=== PATIENT | female | born 2000 | race Hispanic/Latino ===

== ENCOUNTER 2025-10-08 15:46 | Inpatient (IN) | payer OTHER ==
[2025-10-08] MEDS ORDERED: Lidocaine 2% MPF 10 ML AMP (For Epidural Use) ONE (17:00)
[2025-10-08] MEDS ORDERED: Bupivacaine/Epinephrine 0.25% 30 ML VIAL ONE (17:00)
[2025-10-08 17:07] VITALS: BMI 39.9
[2025-10-08 17:31] LABS: ALT (SGPT) 13 U/L (Less than 34); AST (SGOT) 26 U/L (11-34); Albumin 2.2 g/dL (3.1-4.5); Alkaline Phosphatase 137 U/L (40-110); Anion Gap 11 mmol/L (10-20); BUN (Urea Nitrogen) 14 mg/dL (7.0-18.7); Bilirubin, Total 0.5 mg/dL (0.3-1.2); Calc. Creatinine Clearance 150 mL/min (70-130); Calcium 8.3 mg/dL (7.8-10.44); Carbon Dioxide 18 mmol/L (22-29); Chloride 110 mmol/L (98-107); Globulin 3.5 g/dL (2.4-3.5); Glucose 104 mg/dL (70-105); Potassium 4.1 mmol/L (3.5-5.1); Sodium 135 mmol/L (136-145)
[2025-10-08] MEDS ORDERED: Tranexamic Acid 1,000 MG/10 ML VIAL IVP PRN (17:31)
[2025-10-08] MEDS ORDERED: hydrALAZINE 20 MG/ML VIAL SLOW IVP PRN (17:31)
[2025-10-08] MEDS ORDERED: Carboprost 250 MCG/ML AMP IM PRN (17:31)
[2025-10-08] MEDS ORDERED: Lidocaine 1% (PF) 30 ML VIAL SC PRN (17:31)
[2025-10-08] MEDS ORDERED: Diphenoxylate HCl/Atropine Tablet PO PRN ×2 (17:31)
[2025-10-08] MEDS ORDERED: Ibuprofen 800 MG TAB PO PRN (17:31)
[2025-10-08 17:37] LABS: #Basophils Less than 0.03 10x3/uL (0.0-0.2); #Eosinophils Less than 0.03 10x3/uL (0.0-0.5); #Monocytes 0.54 10x3/uL (0.0-1.1); #Neutrophils 6.51 10x3/uL (1.5-8.4); %Basophils 0.2 % (0.0-2.0); %Eosinophils 0.1 % (0.0-6.0); %Lymphocytes 19.3 % (18.0-47.0); %Monocytes 6.1 % (0.0-10.0); %Neutrophils 73.8 % (40.0-75.0); Hematocrit 30.0 % (34.9-44.5); Hemoglobin 10.3 g/dL (12.0-15.5); Mean Corpuscular Hemoglobin 30.3 pg (27.0-33.0); Mean Corpuscular Volume 88.2 fL (81.6-98.3); Platelet Count 141 10x3/uL (150-450); Red Blood Cell (RBC) Count 3.40 10x6/uL (3.90-5.03); White Blood Cell (WBC) Count 8.82 10x3/uL (3.5-10.5)
[2025-10-08] MEDS ORDERED: Oxytocin 30 units/NS 500 ML 500 ML IV SCH (17:45)
[2025-10-08 18:19] LABS: Protein, Urine Random Quant 597.0 mg/dL (1-14)
[2025-10-08 20:24] LABS: Syphilis Antibody Index 0.05 S/CO (<1.00 Non-Reactive)
[2025-10-08 20:27] LABS: Hep B Surf Ag - L&D Non-Reactive S/CO (NonReactive)
[2025-10-09] MEDS: hydrALAZINE 20 MG/ML VIAL SLOW IVP PRN ×2 (08:07→08:49)
[2025-10-09] MEDS ORDERED: hydrALAZINE 20 MG/ML VIAL SLOW IVP PRN (08:07)
[2025-10-09] MEDS ORDERED: Calcium Gluc 4.6 MEQ/10 ML (100 MG/ML) SLOW IVP PRN (08:07)
[2025-10-09] MEDS: Magnesium Sulfate 20 gm/500 ml 20 GM/500 ML BAG IVPB SCH (08:18)
[2025-10-09] MEDS: Acetaminophen 500 MG TAB PO PRN (09:02)
[2025-10-09] MEDS: Acetaminophen 500 MG TAB PO SCH (09:13)
[2025-10-09] MEDS: Oxytocin 30 units/NS 500 ML 500 ML IV SCH (11:32)
[2025-10-09] MEDS ORDERED: Acetaminophen 325 MG TAB PO PRN (22:38)
[2025-10-09] MEDS ORDERED: Ondansetron PF 4 MG/2 ML Vial IVP PRN (22:38)
[2025-10-09] MEDS ORDERED: diphenhydrAMINE 50 MG/ML VIAL IVP PRN (22:38)
[2025-10-09] MEDS ORDERED: Communication Order-Pharmacy FS SCH (22:45)
[2025-10-10] MEDS: Magnesium Sulfate 20 gm/500 ml 20 GM/500 ML BAG ONE (03:10)
[2025-10-10] MEDS: fentaNYL 2 mcg/Ropivacaine 0.2% Epidural 100 ML CADD EPIDURAL SCH (07:21)
[2025-10-10] MEDS: Ondansetron PF 4 MG/2 ML Vial IVP PRN (10:40)
[2025-10-10] MEDS ORDERED: Famotidine/PF 20 mg/2ml Vial SLOW IVP PRN (13:08)
[2025-10-10] MEDS ORDERED: Bicitra 30 ML UDCUP PO PRN (13:08)
[2025-10-10] MEDS ORDERED: Azithromycin 500 MG in Sodium Chloride 0.9% 250 ML 250 ML IVPB SCH (13:15)
[2025-10-10] MEDS ORDERED: Meperidine HCl/PF 25 MG (1 mL) VIAL SLOW IVP PRN (14:39)
[2025-10-10] MEDS ORDERED: Ondansetron PF 4 MG/2 ML Vial IVP PRN ×2 (14:39)
[2025-10-10] MEDS ORDERED: Communication Order-Pharmacy FS SCH (14:45)
[2025-10-10] MEDS ORDERED: Ketorolac Tromethamine 30 MG (1 mL) VIAL IVP SCH (14:45)
[2025-10-10] MEDS ORDERED: Lanolin Ointment 7 GM TUBE TOP PRN (15:05)
[2025-10-10] MEDS ORDERED: hydrALAZINE 20 MG/ML VIAL SLOW IVP PRN (15:05)
[2025-10-10] MEDS ORDERED: Acetaminophen 325 MG TAB PO PRN (15:05)
[2025-10-10 16:52] LABS: Hematocrit 27.0 % (34.9-44.5); Hemoglobin 9.4 g/dL (12.0-15.5); Mean Corpuscular Hemoglobin 30.5 pg (27.0-33.0); Mean Corpuscular Volume 87.7 fL (81.6-98.3); Platelet Count 129 10x3/uL (150-450); Red Blood Cell (RBC) Count 3.08 10x6/uL (3.90-5.03); White Blood Cell (WBC) Count 20.84 10x3/uL (3.5-10.5)
[2025-10-10 17:04] LABS: ALT (SGPT) 14 U/L (Less than 34); AST (SGOT) 48 U/L (11-34); Albumin 1.8 g/dL (3.1-4.5); Alkaline Phosphatase 118 U/L (40-110); Anion Gap 14 mmol/L (10-20); BUN (Urea Nitrogen) 11 mg/dL (7.0-18.7); Bilirubin, Total 0.4 mg/dL (0.3-1.2); Calc. Creatinine Clearance 134 mL/min (70-130); Calcium 7.4 mg/dL (7.8-10.44); Carbon Dioxide 15 mmol/L (22-29); Chloride 105 mmol/L (98-107); Globulin 3.1 g/dL (2.4-3.5); Glucose 153 mg/dL (70-105); Potassium 4.4 mmol/L (3.5-5.1); Sodium 130 mmol/L (136-145)
[2025-10-10 17:09] LABS: Magnesium 7.2 mg/dL (1.6-2.6)
[2025-10-10] MEDS: Furosemide 40 MG (4 mL) VIAL SLOW IVP SCH (17:44)
[2025-10-10 20:05] LABS: D-Dimer Test 3.26 mcg/mL (0.19-0.50); Fibrinogen 530.0 mg/dL (220-504); INR-International Normal Ratio 0.9; PTT 30.5 sec (22.0-33.0); Prothrombin Time 9.6 sec (9.5-12.1)
[2025-10-10 20:14] LABS: Magnesium 6.0 mg/dL (1.6-2.6)
[2025-10-10 20:17] LABS: Platelet Count 146.0 10x3/uL (150-450)
[2025-10-10] MEDS: diphenhydrAMINE 50 MG/ML VIAL IVP PRN (20:40)
[2025-10-11] MEDS: Ketorolac Tromethamine 30 MG (1 mL) VIAL IVP PRN (01:38)
[2025-10-11 02:25] LABS: Hematocrit 24.4 % (34.9-44.5); Hemoglobin 8.5 g/dL (12.0-15.5); Mean Corpuscular Hemoglobin 30.8 pg (27.0-33.0); Mean Corpuscular Volume 88.4 fL (81.6-98.3); Platelet Count 144 10x3/uL (150-450); Red Blood Cell (RBC) Count 2.76 10x6/uL (3.90-5.03); White Blood Cell (WBC) Count 28.53 10x3/uL (3.5-10.5)
[2025-10-11 02:48] LABS: Magnesium 6.2 mg/dL (1.6-2.6)
[2025-10-11 05:55] LABS: Platelet Count 148 10x3/uL (150-450)
[2025-10-11 05:56] LABS: Hematocrit 23.1 % (34.9-44.5); Hemoglobin 7.8 g/dL (12.0-15.5); Mean Corpuscular Hemoglobin 30.5 pg (27.0-33.0); Mean Corpuscular Volume 90.2 fL (81.6-98.3); Red Blood Cell (RBC) Count 2.56 10x6/uL (3.90-5.03); White Blood Cell (WBC) Count 26.45 10x3/uL (3.5-10.5)
[2025-10-11 05:57] LABS: MDiff Complete? YES; Platelet Adequacy Comment Appears Decreased; RBC Morphology Within Normal Limits
[2025-10-11 06:01] LABS: ALT (SGPT) 12 U/L (Less than 34); AST (SGOT) 31 U/L (11-34); Albumin 1.5 g/dL (3.1-4.5); Alkaline Phosphatase 93 U/L (40-110); Anion Gap 12 mmol/L (10-20); BUN (Urea Nitrogen) 14 mg/dL (7.0-18.7); Bilirubin, Total 0.3 mg/dL (0.3-1.2); Calc. Creatinine Clearance 103 mL/min (70-130); Calcium 7.3 mg/dL (7.8-10.44); Carbon Dioxide 19 mmol/L (22-29); Chloride 104 mmol/L (98-107); Globulin 2.9 g/dL (2.4-3.5); Glucose 149 mg/dL (70-105); Potassium 4.6 mmol/L (3.5-5.1); Sodium 130 mmol/L (136-145)
[2025-10-11 08:20] LABS: Magnesium 6.9 mg/dL (1.6-2.6)
[2025-10-11] MEDS: Furosemide 40 MG (4 mL) VIAL SLOW IVP SCH (14:48)
[2025-10-11] MEDS: Ferrous Sulfate 325 MG TAB PO SCH (14:52)
[2025-10-11] MEDS: HYDROcodone/Acetaminophen 5/325 mg Tablet PO PRN ×2 (14:59→20:28)
[2025-10-11] MEDS: fentaNYL/Ropivacaine Epidural 100 ML ONE ×2 (16:37→16:40)
[2025-10-11] MEDS: Dexamethasone 10 MG/ML VIAL ONE (16:38)
[2025-10-11] MEDS: Azithromycin 500 MG VIAL ONE (16:38)
[2025-10-11] MEDS: CEFAZOLIN 2 GM VIAL ONE (16:38)
[2025-10-11] MEDS: Oxytocin 10 UNITS/ML VIAL ONE (16:38)
[2025-10-11] MEDS: Ibuprofen 800 MG TAB PO SCH (22:00)
[2025-10-12] MEDS: Simethicone Chewable 80 MG TAB PO PRN (05:52)
[2025-10-12 05:59] LABS: ALT (SGPT) 15 U/L (Less than 34); AST (SGOT) 33 U/L (11-34); Albumin 1.6 g/dL (3.1-4.5); Alkaline Phosphatase 90 U/L (40-110); Anion Gap 11 mmol/L (10-20); BUN (Urea Nitrogen) 19 mg/dL (7.0-18.7); Bilirubin, Total 0.3 mg/dL (0.3-1.2); Calc. Creatinine Clearance 141 mL/min (70-130); Calcium 7.6 mg/dL (7.8-10.44); Carbon Dioxide 22 mmol/L (22-29); Chloride 109 mmol/L (98-107); Globulin 3.3 g/dL (2.4-3.5); Glucose 83 mg/dL (70-105); Potassium 4.6 mmol/L (3.5-5.1); Sodium 137 mmol/L (136-145)
[2025-10-12] MEDS: NIFEdipine XL 30 MG ER.TAB PO SCH (12:56)
[2025-10-13] MEDS: Ibuprofen 800 MG TAB PO SCH (00:04)
[2025-10-13 07:26] LABS: #Basophils Less than 0.03 10x3/uL (0.0-0.2); #Eosinophils 0.09 10x3/uL (0.0-0.5); #Monocytes 0.65 10x3/uL (0.0-1.1); #Neutrophils 11.97 10x3/uL (1.5-8.4); %Basophils 0.1 % (0.0-2.0); %Eosinophils 0.6 % (0.0-6.0); %Lymphocytes 15.8 % (18.0-47.0); %Monocytes 4.3 % (0.0-10.0); %Neutrophils 78.4 % (40.0-75.0); Hematocrit 23.8 % (34.9-44.5); Hemoglobin 8.0 g/dL (12.0-15.5); Mean Corpuscular Hemoglobin 30.7 pg (27.0-33.0); Mean Corpuscular Volume 91.2 fL (81.6-98.3); Platelet Count 211 10x3/uL (150-450); Red Blood Cell (RBC) Count 2.61 10x6/uL (3.90-5.03); White Blood Cell (WBC) Count 15.25 10x3/uL (3.5-10.5)
[2025-10-13 07:44] LABS: ALT (SGPT) 53 U/L (Less than 34); AST (SGOT) 101 U/L (11-34); Albumin 1.9 g/dL (3.1-4.5); Alkaline Phosphatase 113 U/L (40-110); Anion Gap 7 mmol/L (10-20); BUN (Urea Nitrogen) 12 mg/dL (7.0-18.7); Bilirubin, Total 0.3 mg/dL (0.3-1.2); Calc. Creatinine Clearance 195 mL/min (70-130); Calcium 8.3 mg/dL (7.8-10.44); Carbon Dioxide 27 mmol/L (22-29); Chloride 110 mmol/L (98-107); Globulin 4.1 g/dL (2.4-3.5); Glucose 98 mg/dL (70-105); Potassium 4.3 mmol/L (3.5-5.1); Sodium 140 mmol/L (136-145)
[2025-10-13] MEDS: NIFEdipine XL 30 MG ER.TAB PO SCH (09:37)
[2025-10-13] MEDS: Furosemide 20 MG TAB PO SCH (09:41)
[2025-10-13] MEDS: Acetaminophen 500 MG TAB PO SCH (13:10)
[2025-10-13] MEDS: Iron Sucrose Complex 500 MG in Sodium Chloride 0.9% 250 ML 250 ML IVPB SCH (13:36)
[2025-10-14 03:17] LABS: #Basophils Less than 0.03 10x3/uL (0.0-0.2); #Eosinophils 0.11 10x3/uL (0.0-0.5); #Monocytes 0.78 10x3/uL (0.0-1.1); #Neutrophils 10.51 10x3/uL (1.5-8.4); %Basophils 0.1 % (0.0-2.0); %Eosinophils 0.8 % (0.0-6.0); %Lymphocytes 14.7 % (18.0-47.0); %Monocytes 5.7 % (0.0-10.0); %Neutrophils 77.3 % (40.0-75.0); Hematocrit 19.5 % (34.9-44.5); Hemoglobin 6.5 g/dL (12.0-15.5); Mean Corpuscular Hemoglobin 30.0 pg (27.0-33.0); Mean Corpuscular Volume 89.9 fL (81.6-98.3); Platelet Count 179 10x3/uL (150-450); Red Blood Cell (RBC) Count 2.17 10x6/uL (3.90-5.03); White Blood Cell (WBC) Count 13.60 10x3/uL (3.5-10.5)
[2025-10-14 03:40] LABS: ALT (SGPT) 49 U/L (Less than 34); AST (SGOT) 62 U/L (11-34); Albumin 1.7 g/dL (3.1-4.5); Alkaline Phosphatase 102 U/L (40-110); Anion Gap 11 mmol/L (10-20); BUN (Urea Nitrogen) 10 mg/dL (7.0-18.7); Bilirubin, Total 0.2 mg/dL (0.3-1.2); Calc. Creatinine Clearance 204 mL/min (70-130); Calcium 8.1 mg/dL (7.8-10.44); Carbon Dioxide 24 mmol/L (22-29); Chloride 106 mmol/L (98-107); Globulin 3.4 g/dL (2.4-3.5); Glucose 77 mg/dL (70-105); Potassium 3.9 mmol/L (3.5-5.1); Sodium 137 mmol/L (136-145)
[2025-10-14] MEDS ORDERED: HYDROcodone/Acetaminophen 5/325 mg Tablet PO PRN (08:46)
[2025-10-14] MEDS: NIFEdipine XL 60 MG ER.TAB PO SCH (09:37)
[2025-10-14] MEDS: Furosemide 20 MG TAB PO SCH (09:38)
[2025-10-14 09:47] LABS: Hematocrit 23.4 % (34.9-44.5); Hemoglobin 7.7 g/dL (12.0-15.5)
[2025-10-14 12:16] VITALS: BP 121/65; TEMP 98.6
== END 2025-10-14 12:25 | disposition home or self-care (01) | DRG 787 ==
LOC: CSHLD/OP 15:46 → CSHLD 18:19 → CSHPP 10-11 15:36
PROVIDERS: ADMIT Family Medicine; ATTEND Family Medicine
PROC: 0U797ZZ Dilation of Uterus, Via Natural or Artificial Opening (ICD-10-PCS; 2025-10-09)
PROC: 3E0R3BZ Introduction of Anesthetic Agent into Spinal Canal, Percutaneous Approach (ICD-10-PCS; 2025-10-09)
PROC: 4A1HXCZ Monitoring of Products of Conception, Cardiac Rate, External Approach (ICD-10-PCS; 2025-10-09)
PROC: 10D00Z1 Extraction of Products of Conception, Low, Open Approach (ICD-10-PCS; principal; 2025-10-10)
PROC: 10H07YZ Insertion of Other Device into Products of Conception, Via Natural or Artificial Opening (ICD-10-PCS; 2025-10-10)
DX: O13.4 Gestational [pregnancy-induced] hypertension without significant proteinuria, complicating childbirth (principal); N17.9 Acute kidney failure, unspecified; O14.14 Severe pre-eclampsia complicating childbirth; O32.2XX0 Maternal care for transverse and oblique lie, not applicable or unspecified; O72.1 Other immediate postpartum hemorrhage; Z3A.37 37 weeks gestation of pregnancy; O90.89 Other complications of the puerperium, not elsewhere classified; G57.82 Other specified mononeuropathies of left lower limb; R74.01 Elevation of levels of liver transaminase levels; Z37.0 Single live birth
CPT/HCPCS: 36415; 36416; 51702; 59200; 80053; 82570; 83735; 84156; 85025; 85027; 85049; 85300; 85362; 85384; 85610; 85730; 86780; 86850; 86900; 86901; 87340; 88307; 99285; J0360; J1100; J1200; J1756; J1885; J1940; J2274; J2405; J2590; J3010; J3475; J3490; J7050; J7120

== ENCOUNTER 2025-10-19 09:56 | Inpatient (IN) | payer OTHER ==
[2025-10-19] MEDS ORDERED: Acetaminophen 325 MG TAB PO PRN (11:58)
[2025-10-19] MEDS ORDERED: Lanolin Ointment 7 GM TUBE TOP PRN (12:09)
[2025-10-19 13:39] VITALS: BMI 31.1
[2025-10-19] MEDS: Ibuprofen 800 MG TAB PO SCH (17:36)
[2025-10-19] MEDS: Clindamycin/D5W 900 MG in Premix 1 BAG IVPB SCH (20:52)
[2025-10-20] MEDS ORDERED: Aluminum & Magnesium Hydroxide 60 ML, Lidocaine 2% Viscous Solution 30 ML, diphenhydrAM... SSW PRN (03:26)
[2025-10-20 03:53] LABS: #Basophils 0.03 10x3/uL (0.0-0.2); #Eosinophils 0.12 10x3/uL (0.0-0.5); #Monocytes 0.92 10x3/uL (0.0-1.1); #Neutrophils 15.45 10x3/uL (1.5-8.4); %Basophils 0.2 % (0.0-2.0); %Eosinophils 0.7 % (0.0-6.0); %Lymphocytes 7.0 % (18.0-47.0); %Monocytes 5.1 % (0.0-10.0); %Neutrophils 85.6 % (40.0-75.0); Hematocrit 29.3 % (34.9-44.5); Hemoglobin 9.7 g/dL (12.0-15.5); Mean Corpuscular Hemoglobin 30.1 pg (27.0-33.0); Mean Corpuscular Volume 91.0 fL (81.6-98.3); Platelet Count 315 10x3/uL (150-450); Red Blood Cell (RBC) Count 3.22 10x6/uL (3.90-5.03); White Blood Cell (WBC) Count 18.05 10x3/uL (3.5-10.5)
[2025-10-20 04:03] LABS: ALT (SGPT) 12 U/L (Less than 34); AST (SGOT) 16 U/L (11-34); Albumin 2.1 g/dL (3.1-4.5); Alkaline Phosphatase 78 U/L (40-110); Anion Gap 12 mmol/L (10-20); BUN (Urea Nitrogen) 8 mg/dL (7.0-18.7); Bilirubin, Total 0.3 mg/dL (0.3-1.2); Calc. Creatinine Clearance 165 mL/min (70-130); Calcium 8.2 mg/dL (7.8-10.44); Carbon Dioxide 22 mmol/L (22-29); Chloride 104 mmol/L (98-107); Globulin 4.0 g/dL (2.4-3.5); Glucose 100 mg/dL (70-105); Potassium 3.4 mmol/L (3.5-5.1); Sodium 135 mmol/L (136-145)
[2025-10-20] MEDS: Aluminum & Magnesium Hydroxide 60 ML, Lidocaine 2% Viscous Solution 30 ML, diphenhydrAM... SSW PRN (04:08)
[2025-10-20] MEDS: Famotidine 20 MG TAB PO SCH (04:44)
[2025-10-20] MEDS: Ferrous Sulfate 325 MG TAB PO SCH (04:44)
[2025-10-20] MEDS: NIFEdipine XL 60 MG ER.TAB PO SCH (08:51)
[2025-10-20] MEDS ORDERED: Furosemide 20 MG TAB PO SCH (09:00)
[2025-10-20] MEDS: ADMIXTURE FEE IVPB SCH (09:08)
[2025-10-20] MEDS: GENTAMICIN SULFATE IVPB SCH (09:08)
[2025-10-20] MEDS: SODIUM CHLORIDE IVPB SCH (09:08)
[2025-10-20 10:10] LABS: Magnesium 1.9 mg/dL (1.6-2.6)
[2025-10-20 10:41] VITALS: BMI 31.1
[2025-10-20] MEDS: Potassium Chloride 20 MEQ in Premix 1 BAG IVPB SCH (11:00)
[2025-10-20 12:02] LABS: Hematocrit 29.2 % (34.9-44.5); Hemoglobin 9.7 g/dL (12.0-15.5)
[2025-10-20 14:16] LABS: Hematocrit 28.3 % (34.9-44.5); Hemoglobin 9.6 g/dL (12.0-15.5)
[2025-10-20] MEDS: Potassium Chloride 20 MEQ, Admixture Fee 1 EACH in Lactated Ringer's 1,000 ML IV SCH (14:30)
[2025-10-20] MEDS: Clindamycin/D5W 900 MG in Premix 1 BAG IVPB SCH (14:49)
[2025-10-20] MEDS: Famotidine/PF 20 mg/2ml Vial SLOW IVP SCH (21:11)
[2025-10-21] MEDS ORDERED: Acetaminophen 325 MG TAB PO PRN (03:32)
[2025-10-21 03:36] LABS: #Basophils 0.03 10x3/uL (0.0-0.2); #Eosinophils 0.14 10x3/uL (0.0-0.5); #Monocytes 0.61 10x3/uL (0.0-1.1); #Neutrophils 11.54 10x3/uL (1.5-8.4); %Basophils 0.2 % (0.0-2.0); %Eosinophils 1.0 % (0.0-6.0); %Lymphocytes 7.5 % (18.0-47.0); %Monocytes 4.5 % (0.0-10.0); %Neutrophils 85.5 % (40.0-75.0); Hematocrit 28.0 % (34.9-44.5); Hemoglobin 9.2 g/dL (12.0-15.5); Mean Corpuscular Hemoglobin 30.3 pg (27.0-33.0); Mean Corpuscular Volume 92.1 fL (81.6-98.3); Platelet Count 307 10x3/uL (150-450); Red Blood Cell (RBC) Count 3.04 10x6/uL (3.90-5.03); White Blood Cell (WBC) Count 13.51 10x3/uL (3.5-10.5)
[2025-10-21 03:49] LABS: Anion Gap 12 mmol/L (10-20); BUN (Urea Nitrogen) 6 mg/dL (7.0-18.7); Calc. Creatinine Clearance 170 mL/min (70-130); Calcium 8.6 mg/dL (7.8-10.44); Carbon Dioxide 24 mmol/L (22-29); Chloride 108 mmol/L (98-107); Glucose 92 mg/dL (70-105); Magnesium 1.8 mg/dL (1.6-2.6); Potassium 3.8 mmol/L (3.5-5.1); Sodium 140 mmol/L (136-145)
[2025-10-21] MEDS ORDERED: Ferrous Sulfate 325 MG TAB PO SCH (08:00)
[2025-10-21] MEDS ORDERED: Iopamidol 370 76% 100 ML VIAL ONE (11:09)
[2025-10-21 11:14] LABS: ALT (SGPT) 10 U/L (Less than 34); AST (SGOT) 17 U/L (11-34); Albumin 2.2 g/dL (3.1-4.5); Alkaline Phosphatase 91 U/L (40-110); Bilirubin, Direct 0.1 mg/dL (0.1-0.3); Bilirubin, Total 0.3 mg/dL (0.3-1.2)
[2025-10-21] MEDS: Ketorolac Tromethamine 30 MG (1 mL) VIAL IVP SCH (20:50)
[2025-10-22] MEDS ORDERED: Ketorolac Tromethamine 30 MG (1 mL) VIAL IVP SCH (02:30)
[2025-10-22 03:23] LABS: #Basophils Less than 0.03 10x3/uL (0.0-0.2); #Eosinophils 0.08 10x3/uL (0.0-0.5); #Monocytes 0.50 10x3/uL (0.0-1.1); #Neutrophils 10.27 10x3/uL (1.5-8.4); %Basophils 0.2 % (0.0-2.0); %Eosinophils 0.7 % (0.0-6.0); %Lymphocytes 9.3 % (18.0-47.0); %Monocytes 4.1 % (0.0-10.0); %Neutrophils 84.5 % (40.0-75.0); Hematocrit 30.0 % (34.9-44.5); Hemoglobin 9.8 g/dL (12.0-15.5); Mean Corpuscular Hemoglobin 29.9 pg (27.0-33.0); Mean Corpuscular Volume 91.5 fL (81.6-98.3); Platelet Count 328 10x3/uL (150-450); Red Blood Cell (RBC) Count 3.28 10x6/uL (3.90-5.03); White Blood Cell (WBC) Count 12.14 10x3/uL (3.5-10.5)
[2025-10-22 03:41] LABS: ALT (SGPT) 10 U/L (Less than 34); AST (SGOT) 15 U/L (11-34); Albumin 2.2 g/dL (3.1-4.5); Alkaline Phosphatase 87 U/L (40-110); Anion Gap 14 mmol/L (10-20); BUN (Urea Nitrogen) 5 mg/dL (7.0-18.7); Bilirubin, Total 0.3 mg/dL (0.3-1.2); Calc. Creatinine Clearance 170 mL/min (70-130); Calcium 8.4 mg/dL (7.8-10.44); Carbon Dioxide 21 mmol/L (22-29); Chloride 108 mmol/L (98-107); Globulin 4.1 g/dL (2.4-3.5); Glucose 87 mg/dL (70-105); Potassium 4.0 mmol/L (3.5-5.1); Sodium 139 mmol/L (136-145)
[2025-10-22] MEDS: Ondansetron PF 4 MG/2 ML Vial IVP PRN (07:51)
[2025-10-22] MEDS: Ketorolac Tromethamine 30 MG (1 mL) VIAL IVP PRN (07:52)
[2025-10-22] MEDS ORDERED: MD-Gastroview 120 ML BOT ONE (10:02)
[2025-10-22] MEDS: Ketorolac Tromethamine 30 MG (1 mL) VIAL IVP SCH (13:58)
[2025-10-22 14:26] LABS: Glucose, Urine (Dipstick) Normal (Negative); Leukocyte 25 (Negative); Protein, Urine (Dipstick) 100 mg/dl (Neg-Trace); Specific Gravity, Urine 1.010 (1.005-1.030)
[2025-10-22 15:00] LABS: RBC/HPF 21-50 HPF (0-3)
[2025-10-22 15:01] LABS: Bacteria/HPF 2+ HPF (None Seen); CAUTI Indications for Culture Alt mental st,lethar; Urine Culture Reflex No No
[2025-10-22 18:00] LABS: Gentamicin, Random 4.1 ug/mL (See Comment)
[2025-10-23 05:22] LABS: #Basophils Less than 0.03 10x3/uL (0.0-0.2); #Eosinophils 0.09 10x3/uL (0.0-0.5); #Monocytes 0.57 10x3/uL (0.0-1.1); #Neutrophils 8.80 10x3/uL (1.5-8.4); %Basophils 0.2 % (0.0-2.0); %Eosinophils 0.8 % (0.0-6.0); %Lymphocytes 13.4 % (18.0-47.0); %Monocytes 5.1 % (0.0-10.0); %Neutrophils 79.2 % (40.0-75.0); Hematocrit 30.1 % (34.9-44.5); Hemoglobin 9.9 g/dL (12.0-15.5); Mean Corpuscular Hemoglobin 29.9 pg (27.0-33.0); Mean Corpuscular Volume 90.9 fL (81.6-98.3); Platelet Count 331 10x3/uL (150-450); Red Blood Cell (RBC) Count 3.31 10x6/uL (3.90-5.03); White Blood Cell (WBC) Count 11.11 10x3/uL (3.5-10.5)
[2025-10-23 05:34] LABS: ALT (SGPT) 8 U/L (Less than 34); AST (SGOT) 14 U/L (11-34); Albumin 2.3 g/dL (3.1-4.5); Alkaline Phosphatase 82 U/L (40-110); Anion Gap 15 mmol/L (10-20); BUN (Urea Nitrogen) 6 mg/dL (7.0-18.7); Bilirubin, Total 0.3 mg/dL (0.3-1.2); Calc. Creatinine Clearance 160 mL/min (70-130); Calcium 8.4 mg/dL (7.8-10.44); Carbon Dioxide 20 mmol/L (22-29); Chloride 109 mmol/L (98-107); Globulin 4.0 g/dL (2.4-3.5); Glucose 71 mg/dL (70-105); Potassium 3.9 mmol/L (3.5-5.1); Sodium 140 mmol/L (136-145)
[2025-10-24 06:19] LABS: #Basophils 0.03 10x3/uL (0.0-0.2); #Eosinophils 0.12 10x3/uL (0.0-0.5); #Monocytes 0.46 10x3/uL (0.0-1.1); #Neutrophils 6.90 10x3/uL (1.5-8.4); %Basophils 0.3 % (0.0-2.0); %Eosinophils 1.3 % (0.0-6.0); %Lymphocytes 16.7 % (18.0-47.0); %Monocytes 5.0 % (0.0-10.0); %Neutrophils 75.7 % (40.0-75.0); Hematocrit 31.7 % (34.9-44.5); Hemoglobin 10.6 g/dL (12.0-15.5); Mean Corpuscular Hemoglobin 29.9 pg (27.0-33.0); Mean Corpuscular Volume 89.3 fL (81.6-98.3); Platelet Count 348 10x3/uL (150-450); Red Blood Cell (RBC) Count 3.55 10x6/uL (3.90-5.03); White Blood Cell (WBC) Count 9.12 10x3/uL (3.5-10.5)
[2025-10-24 06:35] LABS: ALT (SGPT) 8 U/L (Less than 34); AST (SGOT) 15 U/L (11-34); Albumin 2.4 g/dL (3.1-4.5); Alkaline Phosphatase 81 U/L (40-110); Anion Gap 16 mmol/L (10-20); BUN (Urea Nitrogen) 7 mg/dL (7.0-18.7); Bilirubin, Total 0.4 mg/dL (0.3-1.2); Calc. Creatinine Clearance 152 mL/min (70-130); Calcium 8.5 mg/dL (7.8-10.44); Carbon Dioxide 21 mmol/L (22-29); Chloride 104 mmol/L (98-107); Globulin 4.4 g/dL (2.4-3.5); Glucose 64 mg/dL (70-105); Potassium 3.7 mmol/L (3.5-5.1); Sodium 137 mmol/L (136-145)
[2025-10-24] MEDS ORDERED: Calcium Carbonate 500 MG ChewTAB PO PRN (20:28)
[2025-10-24 21:48] LABS: Glucose, Urine (Dipstick) Normal (Negative); Leukocyte 500 (Negative); Protein, Urine (Dipstick) 100 mg/dl (Neg-Trace); Specific Gravity, Urine 1.010 (1.005-1.030)
[2025-10-24 21:52] LABS: Bacteria/HPF None Seen HPF (None Seen); WBC/HPF 21-50 HPF (0-3)
[2025-10-25 05:36] LABS: #Basophils 0.04 10x3/uL (0.0-0.2); #Eosinophils 0.14 10x3/uL (0.0-0.5); #Monocytes 0.58 10x3/uL (0.0-1.1); #Neutrophils 5.99 10x3/uL (1.5-8.4); %Basophils 0.5 % (0.0-2.0); %Eosinophils 1.6 % (0.0-6.0); %Lymphocytes 19.4 % (18.0-47.0); %Monocytes 6.8 % (0.0-10.0); %Neutrophils 70.6 % (40.0-75.0); Hematocrit 32.4 % (34.9-44.5); Hemoglobin 10.8 g/dL (12.0-15.5); Mean Corpuscular Hemoglobin 29.7 pg (27.0-33.0); Mean Corpuscular Volume 89.0 fL (81.6-98.3); Platelet Count 359 10x3/uL (150-450); Red Blood Cell (RBC) Count 3.64 10x6/uL (3.90-5.03); White Blood Cell (WBC) Count 8.49 10x3/uL (3.5-10.5)
[2025-10-25 05:50] LABS: ALT (SGPT) 8 U/L (Less than 34); AST (SGOT) 13 U/L (11-34); Albumin 2.5 g/dL (3.1-4.5); Alkaline Phosphatase 82 U/L (40-110); Anion Gap 13 mmol/L (10-20); BUN (Urea Nitrogen) 8 mg/dL (7.0-18.7); Bilirubin, Total 0.3 mg/dL (0.3-1.2); Calc. Creatinine Clearance 163 mL/min (70-130); Calcium 8.5 mg/dL (7.8-10.44); Carbon Dioxide 22 mmol/L (22-29); Chloride 107 mmol/L (98-107); Globulin 4.2 g/dL (2.4-3.5); Glucose 94 mg/dL (70-105); Potassium 3.6 mmol/L (3.5-5.1); Sodium 138 mmol/L (136-145)
[2025-10-25 07:40] VITALS: BP 126/74; TEMP 99.1
[2025-10-25 10:26] LABS: Glucose, Urine (Dipstick) Normal (Negative); Leukocyte Negative (Negative); Protein, Urine (Dipstick) 100 mg/dl (Neg-Trace); Specific Gravity, Urine 1.015 (1.005-1.030)
[2025-10-25 11:00] LABS: Bacteria/HPF 4+ HPF (None Seen); CAUTI Indications for Culture Dysuria,urgency,freq; Mucous/LPF 1+ LPF (<2+); WBC/HPF 0-3 HPF (0-3)
[2025-10-25 11:01] LABS: Urine Culture Reflex No No
[2025-10-26] MEDS ORDERED: Famotidine 20 MG TAB PO SCH (09:00)
== END 2025-10-25 11:55 | disposition home or self-care (01) | DRG 776 ==
LOC: CSHPP 11:08 → INTOOBSV 11:08 → CSHPP 12:39 → OBSVTOIN 10-21 09:20
PROVIDERS: ADMIT Family Medicine; ATTEND Family Medicine
DX: O86.12 Endometritis following delivery (principal); K56.7 Ileus, unspecified; K56.600 Partial intestinal obstruction, unspecified as to cause; O99.63 Diseases of the digestive system complicating the puerperium; Z79.899 Other long term (current) drug therapy; Z98.890 Other specified postprocedural states; O90.81 Anemia of the puerperium; D64.9 Anemia, unspecified; E87.6 Hypokalemia; O99.285 Endocrine, nutritional and metabolic diseases complicating the puerperium; K64.8 Other hemorrhoids; R30.0 Dysuria; O99.893 Other specified diseases and conditions complicating puerperium
CPT/HCPCS: 36415; 74019; 74177; 74250; 76705; 80048; 80053; 80076; 80170; 81001; 81003; 81015; 82247; 82274; 83605; 83690; 83735; 85025; 87086; 96374; 96375; 96376; G0378; J0290; J1308; J1580; J1885; J2270; J2405; J3480; J3490; J7120; Q0162; Q0163; Q9963; Q9967